=== PATIENT | female | born 1955 | race Caucasian/White ===

== ENCOUNTER 2016-06-27 18:40 | Emergency (ER) | payer MEDICARE, OTHER ==
--- NOTE | ~2016-06-27 | CR181 ---
[facility] A Service of [facility] & [facility] RADIOLOGY TEXT RESULTS PATIENT: PRINCESS EVERETT LOCATION: [facility] : 59 UNIT #: [id number] AGE: [address]: Sadaf Chavarria MD SEX: F ORDER DR: [id number] [facility] [address] [place], [place] [address] [id number] E MR#: [id number] Acc #: [id number] NAME: PRINCESS EVERETT : 1955 SEX: F STUDY DATE/TIME: 06/27/2016 20:15 UNIT: [facility] ROOM: STUDY DESCRIPTION: CR Lumbar Spine 2 or 3 Views Attending Physician: Sadaf Chavarria M.D. Ordering Physician: Sadaf Chavarria M.D. Primary Care Physician: Kelby Ahn M.D. MEDICAL IMAGING REPORT This report is preliminary unless electronic signature is present EXAM Lumbar spine, total of 3 views. HISTORY History supplied is fall with back pain, fell yesterday. FINDINGS 3 views are submitted. The exam shows postop changes of prior lumbar fusion from L4-S1 as well as fusion of both the right and left SI joints. There is mild anterolisthesis of L5 on S1. Pedicle screws, intervertebral disc hardware and hardware in the SI joints appears in appropriate position. Remainder of the lumbar spine is remarkable for marginal spur formation at L2-3. No acute fractures are suspected. There is atherosclerotic calcification in the aorta. CONCLUSION No acute finding suspected. Postop changes of prior pedicle screw and intervertebral disc fusion from L4-S1 as well as fusion of both SI joints. Not mentioned above, left renal artery stent. No acute findings. Dictated by... Ashish Barnhart M.D. THIS IS AN ELECTRONICALLY VERIFIED REPORT Ashish Barnhart M.D. at 06/28/2016 10:35 AM CHRIS/nandini TD: 06/28/2016 05:26 JOB #: [id number] MEDICAL IMAGING REPORT Page 1 of 1 COPY
--- NOTE | ~2016-06-27 | CR243 ---
[facility] A Service of [facility] & [facility] RADIOLOGY TEXT RESULTS PATIENT: PRINCESS EVERETT LOCATION: [facility] : 59 UNIT #: [id number] AGE: [address]: Sadaf Chavarria MD SEX: F ORDER DR: [id number] [facility] [address] [place], [place] [address] [id number] E MR#: [id number] Acc #: [id number] NAME: PRINCESS EVERETT : 1955 SEX: F STUDY DATE/TIME: 06/27/2016 20:15 UNIT: [facility] ROOM: STUDY DESCRIPTION: CR Thoracic Spine 3 Views Attending Physician: Sadaf Chavarria M.D. Ordering Physician: Sadaf Chavarria M.D. Primary Care Physician: Kelby Ahn M.D. MEDICAL IMAGING REPORT This report is preliminary unless electronic signature is present EXAM Thoracic spine 3 views HISTORY Back pain after fall yesterday. FINDINGS 3 views of the thoracic spine demonstrate the thoracic alignment is satisfactory. Minimal hypertrophic changes in the upper thoracic spine. No fracture or subluxation. Lower cervical fusion from C5 to C7. IMPRESSION 1. No acute findings. No fracture or subluxation. 2. Mild hypertrophic changes upper thoracic spine. Dictated by... Mendoza Oh M.D. THIS IS AN ELECTRONICALLY VERIFIED REPORT Mendoza Oh M.D. at 06/28/2016 7:58 PM DFL/df TD: 06/28/2016 05:50 JOB #: [id number] MEDICAL IMAGING REPORT Page 1 of 1 COPY
--- NOTE | ~2016-06-27 | CR206 ---
[facility] A Service of [facility] & [facility] RADIOLOGY TEXT RESULTS PATIENT: PRINCESS EVERETT LOCATION: [facility] : 59 UNIT #: [id number] AGE: [address]: Sadaf Chavarria MD SEX: F ORDER DR: [id number] [facility] [address] [place], [place] [address] [id number] E MR#: [id number] Acc #: [id number] NAME: PRINCESS EVERETT : 1955 SEX: F STUDY DATE/TIME: 06/27/2016 20:15 UNIT: [facility] ROOM: STUDY DESCRIPTION: CR Pelvis 1 or 2 Views Attending Physician: Sadaf Chavarria M.D. Ordering Physician: Sadaf Chavarria M.D. Primary Care Physician: Kelby Ahn M.D. MEDICAL IMAGING REPORT This report is preliminary unless electronic signature is present EXAM AP pelvis, 06/27/2016 HISTORY SUPPLIED Back pain, hip pain and weakness beginning yesterday after fall. FINDINGS A single view is obtained. The patient has had a lumbar fusion and fusion of the SI joints. The bony elements are intact. No fractures are identified. CONCLUSION Status post fusion of the SI joints and lumbar spine. No acute findings or fractures. Dictated by... Ashish Barnhart M.D. THIS IS AN ELECTRONICALLY VERIFIED REPORT Ashish Barnhart M.D. at 06/28/2016 10:35 AM CHRIS/hever TD: 06/28/2016 05:30 JOB #: [id number] MEDICAL IMAGING REPORT Page 1 of 1 COPY
[~2016-06-27 18:40] MED LIST: ABILIFY PO; ABILIFY10 MG PO; ABILIFY20 MG PO; ADVAIR 2501 DISK W/D; ADVAIR 2501 DISK W/D PO; ALBUTEROL 0.5ML INH; ALBUTEROL MININEB NEB; ALBUTEROL17 GM INH; ALBUTEROL20 ml INH; ALLEGRA PO; ALPRAZOLAM PO; AMBIEN PO; ASPIRIN EC81 M1 PO; ASPIRIN PO; ASPIRIN81 M1 PO; ASPIRIN81 M2 PO; AZITHROMYCIN250 MG PO; AZITHROMYCIN500 MG PO; BACLOFEN10 MG PO; BACTRIM DS TABL1 TAB PO; BENZONATATE PO; CARAFATE1 G PO; CARDURA PO; CIPRO PO; COLACE PO; COMBIVENT U/D3 M2 INH; CYMBALTA PO; CYMBALTA20 MG DOB; CYMBALTA20 MG PO; CYMBALTA30 MG PO; DEPAKOTE ER PO; DEPAKOTE PO; DIAZEPAM PO; DICLOFENAC PO; DOXEPIN HCL150 MG PO; DOXEPIN PO; ESGIC CAPSULE1 CAP PO; FIORICET1 TAB PO; FIORINAL CAPSUL1 CAP; FLEXERIL PO; GUAIFENESIN LA600 M1 PO; HCTZ; HCTZ PO; IBUPROFEN PO; K-DUR20 ME1 PO; KLONOPIN PO; LASIX20 MG PO; LIDOCAINE HCL30 ML TOP; LISINOPRIL10 MG; LISINOPRIL5 MG PO; LOPID600 MG PO; LORTAB 10/500 T1 TAB PO; LORTAB 7.5-5001 TAB PO; LOTREL 10-20 MG1 CAP PO; LOW DOSE ASPIRI81 M2 PO; LYRICA PO; MEDROL DOSEPAK4 MG PO; MEDROL PO; MEDROL4 MG/DOSE- PO; METHADONE; METOPROLOL SUCC25 MG PO; METOPROLOL TAR25 MG; METOPROLOL TAR25 MG PO; MOBIC PO; MUCINEX DM1 TAB.SR . PO; NASALIDE25 ML; NASALIDE25 ML PO; NEURONTIN; NICOTINE T1 PATCH .2; NITROGLYGERIN0.4 MG SL; NITROGYLCERIN SUBLINGUAL; NORCO 10-325 TA1 TAB PO; OMEPRAZOLE20 M2 PO; OXYCODONE HCL10 MG PO; OXYCODONE-APAP1 EAC5 PO; PANTOPRAZOLE SO40 MG PO; PATIENT'S PHARMACY; PATIENT'S PHARMACY PO; PERCOCET 10/3251 TAB PO; PERCOCET PO; PERCOCET10 PO; PERCOCET5/325 PO; PHENERGAN PO; PHENERGAN25 M1; PHENERGAN25 M1 PO; PHENERGAN25 MG PO; PREDNISONE PO; PREVACID PO; PROMETH-CODEIN 65 ML PO; PROTONIX; PROTONIX20 MG PO; PROTONIX40 MG/BLIS PO; PYRIDIUM PO; REGLAN; REGLAN PO; RELPAX40 MG PO; SEROQUEL; SEROQUEL PO; SIMVASTATIN10 MG PO; SYMBICORT INH; SYMBYAX 6-251 UDCAP; TEMAZEPAM PO; TEMAZEPAM30 MG PO; TESSALON PERLE100 M1 PO; TOPROL XL PO; ULTRAM PO; VICODIN 5/500 T1 TAB; VICODIN PO; XANAX XR2 MG PO; XANAX2 MG; XANAX2 MG PO; ZANAFLEX4 M1 PO; ZITHROMAX PO; ZITHROMAX1 G/PKT PO; ZOCOR; ZOCOR20 MG PO; ZOFRAN PO; [UNRECOGNIZED DRUG - OTHER] PO
[2016-07-26] MEDS ORDERED: ACID REDUCER150 MG PO (12:44)
[2016-07-26] MEDS ORDERED: CYMBALTA (12:44)
[2016-07-26] MEDS ORDERED: OXYCODONE HCL10 MG PO (12:45)
[2016-11-02] MEDS ORDERED: ABILIFY20 MG PO (14:26)
[2016-11-02] MEDS ORDERED: CYMBALTA PO (14:26)
[2016-11-02] MEDS ORDERED: BACLOFEN20 M1 (14:27)
[2016-11-02] MEDS ORDERED: XANAX2 MG (14:28)
[2016-11-02] MEDS ORDERED: TEMAZEPAM30 MG PO (14:28)
[2016-11-02] MEDS ORDERED: METOPROLOL TAR25 MG DOB (14:29)
[2016-11-02] MEDS ORDERED: LASIX20 MG PO (14:29)
[2016-11-02] MEDS ORDERED: ZANTAC150 M1 PO (14:29)
[2016-11-02] MEDS ORDERED: OXYCODONE HCL10 MG PO (14:30)
== END 2016-06-27 21:58 | disposition home or self-care (01) ==
LOC: CED 18:40
DX: S39.92XA Unspecified injury of lower back, initial encounter (principal); I25.2 Old myocardial infarction; J44.9 Chronic obstructive pulmonary disease, unspecified; F17.200 Nicotine dependence, unspecified, uncomplicated; Z88.0 Allergy status to penicillin; Z88.8 Allergy status to other drugs, medicaments and biological substances; Z79.899 Other long term (current) drug therapy; W01.0XXA Fall on same level from slipping, tripping and stumbling without subsequent striking against object, initial encounter; Y92.098 Other place in other non-institutional residence as the place of occurrence of the external cause
CPT/HCPCS: 72072; 72100; 72170; 99284

== ENCOUNTER 2016-08-11 16:15 | Emergency (ER) | payer MEDICARE, OTHER ==
--- NOTE | ~2016-08-11 | EKG ---
PATIENT: PRINCESS EVERETT UNIT #: [id number] Ventricular Rate: 84 BPM Atrial Rate: 84 BPM P-R Interval: 160 ms QRS Duration: 92 ms Q-T Interval: 410 ms QTC Calculation(Bezet): 484 ms P [place]: 64 degrees Calculated R [place]: 46 degrees Calculated T [place]: 40 degrees Diagnosis Line: Normal sinus rhythm Diagnosis Line: ST and T wave abnormality, consider anterior Diagnosis Line: ischemia Diagnosis Line: Prolonged QT Baseline wander Diagnosis Line: Abnormal ECG Diagnosis Line: When compared with ECG of 25-APR-2016 20:15, Diagnosis Line: No significant change was found Diagnosis Line: Confirmed by LUCIA SUAREZ MD ([id number]) on 08/12/2016 Diagnosis Line: 4:08:36 PM INTERPRETING MD: DANIELA SARABIA
--- NOTE | ~2016-08-11 | CR72 ---
[facility] A Service of [facility] & [facility] RADIOLOGY TEXT RESULTS PATIENT: PRINCESS EVREETT LOCATION: [facility] : 59 UNIT #: [id number] AGE: [address]: Cornelius Cook MD SEX: F ORDER DR: [id number] [facility] [address] [place], [place] [address] [id number] E MR#: [id number] Acc #: [id number] NAME: PRINCESS EVERETT : 1955 SEX: F STUDY DATE/TIME: 08/11/2016 16:20 UNIT: [facility] ROOM: STUDY DESCRIPTION: CR Chest Single View Portable Attending Physician: Cornelius Cook M.D. Ordering Physician: Cornelius Cook M.D. Primary Care Physician: Kelby Ahn M.D. MEDICAL IMAGING REPORT This report is preliminary unless electronic signature is present EXAM Portable chest. INDICATIONS Cough, congestion for 2 days. COMPARISON 04/25/2016 FINDINGS A portable view of the chest was obtained. The heart size and vascularity are normal. Lungs are clear. The bones are unremarkable except for postoperative changes in the cervical spine. IMPRESSION No active disease. Dictated by... Darnell Vines M.D. THIS IS AN ELECTRONICALLY VERIFIED REPORT Darnell Vines M.D. at 08/11/2016 9:54 PM TAMELA/jolly TD: 08/11/2016 20:37 JOB #: [id number] MEDICAL IMAGING REPORT Page 1 of 1 COPY
[~2016-08-11 16:15] MED LIST changes: +ACID REDUCER150 MG PO; +CYMBALTA
[2016-08-11 16:34] LABS: BASOPHIL# 0.1 X10e3 (0-0.3); BASOPHIL% 1.1 % (0-2.5); EOSINOPHIL# 0.4 X10e3 (0-0.7); EOSINOPHIL% 4.8 % (0.0-7.0); HEMATOCRIT 36.2 % (35.0-45.0); HEMOGLOBIN 11.7 gm/dL (12.0-16.0); LYMPHOCYTE# 1.8 X10e3 (1.0-3.5); MEAN CELL VOLUME 81.5 FL (83-96); MEAN CORPUSCULAR HEMOGLOBIN 26.4 PG (28-34); MEAN CORPUSCULAR HGB CONC 32.3 g/dL (30-36); MEAN PLATELET VOLUME 7.8 FL (6.5-11.5); MONOCYTE# 0.6 X10e3 (0-1.0); MONOCYTE% 7.7 % (3.0-12.0); NEUTROPHIL% 63.4 % (40-75); PLATELET COUNT 323 X10e3 (140-420); RED BLOOD COUNT 4.43 X10e (3.90-5.30); RED CELL DISTRIBUTION WIDTH 16.6 % (11.0-15.5); WHITE BLOOD COUNT 7.9 X10e3 (4.0-10.5)
[2016-08-11 16:34] LABS: POC - CKMB <1.0 ng/mL (0.0-7.9); POC - TROPONIN <0.05 ng/mL (<=0.05)
[2016-08-11 16:40] LABS: DIFF IND NO
[2016-08-11 16:49] LABS: PARTIAL THROMBOPLASTIN TIME 26.6 SECONDS (23.5-31.3); PROTHROMBIN TIME (PATIENT) 10.4 SECONDS (9.6-11.5)
[2016-08-11 17:02] LABS: ALBUMIN SERUM 3.4 g/dL (3.5-5.0); ALKALINE PHOSPHATASE 99 U/L (32-92); ALT (SGPT) 21 U/L (10-40); AST (SGOT) 15 U/L (10-42); BILIRUBIN, DIRECT 0.2 mg/dL (0.0-0.2); BILIRUBIN,INDIRECT 0.6 mg/dL (0.0-0.9); BILIRUBIN,TOTAL 0.8 mg/dL (0.2-2.0); BLOOD UREA NITROGEN 6 mg/dL (9-23); CARBON DIOXIDE 30 mmol/L (22-31); CHLORIDE 101 mmol/L (100-111); CREATININE SERUM 0.8 mg/dL (0.6-1.4); GLOM FILT RATE Estimated 80.8 mL/min (>60); GLUCOSE FASTING 89 mg/dL (70-110); PROTEIN TOTAL SERUM 6.8 g/dL (6.0-8.3); SODIUM 141 mmol/L (135-145)
[2016-08-11 17:03] LABS: URINE SOURCE CLEAN CATCH
[2016-08-11 17:05] LABS: ALCOHOL BLOOD <5 mg/dL (0)
[2016-08-11 17:08] LABS: URINE APPEARANCE CLOUDY; URINE BILIRUBIN NEG (NEG); URINE BLOOD TRACE (NEG); URINE COLOR DK YELLOW; URINE GLUCOSE NEG (NEG); URINE KETONE TRACE (NEG); URINE LEUKOCYTE ESTERASE 3+ (NEG); URINE NITRATE NEG (NEG); URINE PROTEIN NEG (NEG); URINE SPECIFIC GRAVITY 1.017 (1.003-1.035)
[2016-08-11 17:11] LABS: CULTURE INDICATED? YES; URINE BACTERIA AUWI NEG (NEGATIVE); URINE SQUAMOUS EPITHELIAL CELL NONE SEEN /[HPF]; UWBCS1 AUWI 200-300 (0-5)
[2016-08-11 17:18] LABS: AMPHETAMINE NEG (NEG); BARBITURATES NEG (NEG); BENZODIAZEPINES POS (NEG); COCAINE NEG (NEG); MARIJUANA NEG (NEG); OPIATES POS (NEG); TRICYCLIC ANTIDEPRESSANTS NEG (NEG); U METHADONE NEG (NEG)
[2016-08-11 18:31] LABS: POC - CKMB <1.0 ng/mL (0.0-7.9); POC - TROPONIN <0.05 ng/mL (<=0.05)
[2016-11-02] MEDS ORDERED: CYMBALTA PO (14:26)
[2016-11-02] MEDS ORDERED: ABILIFY20 MG PO (14:26)
[2016-11-02] MEDS ORDERED: BACLOFEN20 M1 (14:27)
[2016-11-02] MEDS ORDERED: TEMAZEPAM30 MG PO (14:28)
[2016-11-02] MEDS ORDERED: XANAX2 MG (14:28)
[2016-11-02] MEDS ORDERED: ZANTAC150 M1 PO (14:29)
[2016-11-02] MEDS ORDERED: METOPROLOL TAR25 MG DOB (14:29)
[2016-11-02] MEDS ORDERED: LASIX20 MG PO (14:29)
[2016-11-02] MEDS ORDERED: OXYCODONE HCL10 MG PO (14:30)
== END 2016-08-11 18:40 | disposition home or self-care (01) ==
LOC: CED 16:15
PROVIDERS: Emergency Medicine
DX: N39.0 Urinary tract infection, site not specified (principal); J44.9 Chronic obstructive pulmonary disease, unspecified; K21.9 Gastro-esophageal reflux disease without esophagitis; I50.9 Heart failure, unspecified; Z85.41 Personal history of malignant neoplasm of cervix uteri; I42.9 Cardiomyopathy, unspecified; F17.200 Nicotine dependence, unspecified, uncomplicated; Z88.8 Allergy status to other drugs, medicaments and biological substances; Z88.0 Allergy status to penicillin; Z79.899 Other long term (current) drug therapy
CPT/HCPCS: 36415; 51701; 71010; 80048; 80076; 80307; 81003; 82553; 84484; 85025; 85610; 85730; 87086; 93005; 96374; 99284; G0480; J2405

== ENCOUNTER 2016-09-14 10:29 | Emergency (ER) | payer MEDICARE, OTHER ==
--- NOTE | ~2016-09-14 | CR181 ---
[facility] A Service of [facility] RADIOLOGY TEXT RESULTS PATIENT: PRINCESS EVERETT LOCATION: [facility] : 59 UNIT #: [id number] AGE: [address]: CONNIE BAUTISTA SEX: F ORDER DR: [id number] [place] [id number] [facility] [place], [place] [address] [id number] E MR#: [id number] Acc #: [id number] NAME: PRINCESS EVERETT : 1955 SEX: F STUDY DATE/TIME: 09/14/2016 11:06 UNIT: [facility] ROOM: STUDY DESCRIPTION: CR Lumbar Spine 2 or 3 Views Attending Physician: Connie Bautista Aprn Ordering Physician: Connie Bautista Aprn Primary Care Physician: Kelby Ahn M.D. MEDICAL IMAGING REPORT This report is preliminary unless electronic signature is present EXAM Lumbar spine 09/14/2016 1106 hours HISTORY Patient fell last night. History of chronic back pain with worsening pain due to fall. COMPARISON 06/27/2016. FINDINGS AP and lateral views and a cone lateral view of the lumbosacral junction were performed. There are 5 non-rib bearing lumbar type vertebrae. Patient has pedicle screws with vertical stabilization rods at L3 and L4 with disc spacers at L3-4, L4-5 and L5-S1. Previous hardware at L5 and S1 has been removed. Patient has hardware fusing across both sacroiliac joints and bone graft material seen in the lower lumbar spine. There is no acute fracture seen. There are atherosclerotic calcifications with a left renal artery stent unchanged. IMPRESSION 1. No acute fracture or subluxation. 2. There are pedicle screws and posterior vertical stabilization rods at L3 and L4 with removal of hardware from L5 and S1 since the comparison study of 06/27/2016. There is bone graft material posteriorly in the lower lumbar levels. 3. Postop change of fusion across the sacroiliac joints unchanged. Dictated by... Lynnette Pedraza M.D. THIS IS AN ELECTRONICALLY VERIFIED REPORT [facility] A Service of [facility] RADIOLOGY TEXT RESULTS PATIENT: PRINCESS EVERETT LOCATION: [facility] : 59 UNIT #: [id number] AGE: [address]: CONNIE BAUTISTA SEX: F ORDER DR: Lynnette Pedraza M.D. at 09/14/2016 2:09 PM JESSICA/jens TD: 09/14/2016 12:41 JOB #: [id number] MEDICAL IMAGING REPORT Page 1 of 1 COPY
[2016-11-02] MEDS ORDERED: CYMBALTA PO (14:26)
[2016-11-02] MEDS ORDERED: ABILIFY20 MG PO (14:26)
[2016-11-02] MEDS ORDERED: BACLOFEN20 M1 (14:27)
[2016-11-02] MEDS ORDERED: TEMAZEPAM30 MG PO (14:28)
[2016-11-02] MEDS ORDERED: XANAX2 MG (14:28)
[2016-11-02] MEDS ORDERED: METOPROLOL TAR25 MG DOB (14:29)
[2016-11-02] MEDS ORDERED: LASIX20 MG PO (14:29)
[2016-11-02] MEDS ORDERED: ZANTAC150 M1 PO (14:29)
[2016-11-02] MEDS ORDERED: OXYCODONE HCL10 MG PO (14:30)
== END 2016-09-14 12:25 | disposition home or self-care (01) ==
LOC: CED 10:29 → CFTX 10:29
DX: S39.012A Strain of muscle, fascia and tendon of lower back, initial encounter (principal); S30.0XXA Contusion of lower back and pelvis, initial encounter; J44.9 Chronic obstructive pulmonary disease, unspecified; Z90.710 Acquired absence of both cervix and uterus; Z90.49 Acquired absence of other specified parts of digestive tract; Z98.890 Other specified postprocedural states; F17.200 Nicotine dependence, unspecified, uncomplicated; W19.XXXA Unspecified fall, initial encounter; Y92.9 Unspecified place or not applicable
CPT/HCPCS: 72100; 99283

== ENCOUNTER 2016-10-01 10:36 | Emergency (ER) | payer MEDICARE, OTHER ==
--- NOTE | ~2016-10-01 | CT2 ---
[facility] A Service of [facility] & [facility] RADIOLOGY TEXT RESULTS PATIENT: PRINCESS EVERETT LOCATION: [facility] : 59 UNIT #: [id number] AGE: [address]: Natanael Hi MD SEX: F ORDER DR: [id number] [facility] [address] [place], [place] [address] [id number] E MR#: [id number] Acc #: [id number] NAME: PRINCESS EVERETT : 1955 SEX: F STUDY DATE/TIME: 10/01/2016 13:01 UNIT: [facility] ROOM: STUDY DESCRIPTION: CT Abd and Pelv W Cont Attending Physician: Natanael Hi M.D. Ordering Physician: Natanael Hi M.D. Primary Care Physician: Kelby Ahn M.D. MEDICAL IMAGING REPORT This report is preliminary unless electronic signature is present EXAM CT of the abdomen and pelvis with contrast. INDICATIONS Nausea, vomiting for [address] scan of the abdomen and pelvis was performed following the administration of oral and IV contrast. Coronal and sagittal reformatted images were obtained. This CT exam was performed with one or more of the following radiation dose reduction techniques: automatic exposure control, adjustment of mA and/or kV according to patient size, and iterative reconstruction. Comparison with 09/11/2015. FINDINGS There are patchy airspace opacities within the base of the right lower lobe which may represent small areas of pneumonia. Correlate clinically. The liver is unremarkable. Cholecystectomy. The spleen is unremarkable. Stable atrophy of the left kidney with respect to the right. The adrenal glands are unremarkable. Pancreas is unremarkable. Pelvis. The colon is unremarkable. The appendix is normal. There is no free fluid. Hysterectomy. Bone windows demonstrate postoperative changes of the pelvis in the lumbar spine. IMPRESSION 1. There are some patchy airspace opacities in the base of the right lower lobe which are nonspecific but may be infectious or inflammatory. Correlate clinically. A followup chest CT in 3 months would be helpful to document clearing. 2. Stable atrophy of the left kidney with respect to the right kidney. There is a stent within the left renal artery. [facility] A Service of [facility] & [facility] RADIOLOGY TEXT RESULTS PATIENT: PRINCESS EVERETT LOCATION: [facility] : 59 UNIT #: [id number] AGE: [address]: Natanael Hi MD SEX: F ORDER DR: 3. Cholecystectomy and hysterectomy. Dictated by... Freddy Maradiaga M.D. THIS IS AN ELECTRONICALLY VERIFIED REPORT Freddy Maradiaga M.D. at 10/02/2016 7:32 AM ARS/padma TD: 10/01/2016 20:05 JOB #: [id number] MEDICAL IMAGING REPORT Page 1 of 1 COPY
[2016-10-01 11:19] LABS: BASOPHIL% 0.3 % (0-2.5); EOSINOPHIL# 0.3 X10e3 (0-0.7); HEMATOCRIT 39.3 % (35.0-45.0); LYMPHOCYTE# 2.8 X10e3 (1.0-3.5); LYMPHOCYTE% 27.3 % (17.0-45.0); MEAN CELL VOLUME 81.3 FL (83-96); MEAN CORPUSCULAR HEMOGLOBIN 26.9 PG (28-34); MEAN CORPUSCULAR HGB CONC 33.1 g/dL (30-36); MEAN PLATELET VOLUME 7.5 FL (6.5-11.5); MONOCYTE# 0.6 X10e3 (0-1.0); MONOCYTE% 5.5 % (3.0-12.0); NEUTROPHIL# 6.6 X10e3 (1.5-7.1); NEUTROPHIL% 63.9 % (40-75); PLATELET COUNT 315 X10e3 (140-420); RED BLOOD COUNT 4.84 X10e (3.90-5.30); RED CELL DISTRIBUTION WIDTH 15.9 % (11.0-15.5); WHITE BLOOD COUNT 10.3 X10e3 (4.0-10.5)
[2016-10-01 11:21] LABS: DIFF IND NO
[2016-10-01 11:53] LABS: ALBUMIN SERUM 3.6 g/dL (3.5-5.0); BILIRUBIN, DIRECT 0.1 mg/dL (0.0-0.2); BILIRUBIN,INDIRECT 0.2 mg/dL (0.0-0.9); BILIRUBIN,TOTAL 0.3 mg/dL (0.2-2.0); BUN/CREATININE RATIO 6.25; CALCIUM SERUM 9.2 mg/dL (8.4-10.2); CREATININE SERUM 0.8 mg/dL (0.6-1.4); GLOM FILT RATE Estimated 80.8 mL/min (>60); POTASSIUM 3.1 mmol/L (3.5-5.1); PROTEIN TOTAL SERUM 6.9 g/dL (6.0-8.3)
[2016-10-01 12:48] LABS: URINE SOURCE CLEAN CATCH
[2016-10-01 12:56] LABS: URINE APPEARANCE CLEAR; URINE BILIRUBIN NEG (NEG); URINE BLOOD NEG (NEG); URINE COLOR YELLOW; URINE GLUCOSE NEG (NEG); URINE KETONE NEG (NEG); URINE LEUKOCYTE ESTERASE 1+ (NEG); URINE NITRATE POS (NEG); URINE PH 6.5 (5-8); URINE PROTEIN NEG (NEG); URINE SPECIFIC GRAVITY 1.007 (1.003-1.035); URINE UROBILINOGEN 0.2 MG/DL (NEG)
[2016-10-01 13:00] LABS: CULTURE INDICATED? YES; URBCS1 AUWI 0-2 /[HPF] (0-2); URINE BACTERIA AUWI 1+ (NEGATIVE); URINE SQUAMOUS EPITHELIAL CELL FEW /[HPF]
[2016-10-01 13:30] LABS: URINE MUCUS PRESENT; URINE TRANSITIONAL EPI CELLS FEW /[HPF]
[2016-11-02] MEDS ORDERED: CYMBALTA PO (14:26)
[2016-11-02] MEDS ORDERED: ABILIFY20 MG PO (14:26)
[2016-11-02] MEDS ORDERED: BACLOFEN20 M1 (14:27)
[2016-11-02] MEDS ORDERED: XANAX2 MG (14:28)
[2016-11-02] MEDS ORDERED: TEMAZEPAM30 MG PO (14:28)
[2016-11-02] MEDS ORDERED: METOPROLOL TAR25 MG DOB (14:29)
[2016-11-02] MEDS ORDERED: ZANTAC150 M1 PO (14:29)
[2016-11-02] MEDS ORDERED: LASIX20 MG PO (14:29)
[2016-11-02] MEDS ORDERED: OXYCODONE HCL10 MG PO (14:30)
== END 2016-10-01 14:29 | disposition home or self-care (01) ==
LOC: CED 10:36
PROVIDERS: Emergency Medicine
DX: R10.9 Unspecified abdominal pain (principal); R11.10 Vomiting, unspecified; R19.7 Diarrhea, unspecified; J44.9 Chronic obstructive pulmonary disease, unspecified; F17.200 Nicotine dependence, unspecified, uncomplicated; E87.6 Hypokalemia; Z88.0 Allergy status to penicillin; Z88.8 Allergy status to other drugs, medicaments and biological substances; Z88.1 Allergy status to other antibiotic agents
CPT/HCPCS: 36415; 74177; 80048; 80076; 81003; 82150; 83690; 85025; 87086; 87088; 87186; 96361; 96374; 99284; J2550; Q9967

== ENCOUNTER → 2016-11-02 | Day surgery (SDC) | payer MEDICARE, OTHER ==
[~2016-11-02] MED LIST changes: +BACLOFEN20 M1; +METOPROLOL TAR25 MG DOB; +ZANTAC150 M1 PO
--- NOTE | ~2016-11-02 | OR ---
Unit #: [id number] #: [id number] Patient: PRINCESS EVERETT [id number] [address] [address] [id number] O MR#: [id number] NAME: PRINCESS EVERETT ROOM: Date of Procedure: 11/02/2016 Admission Date: 11/02/2016 Surgeon: Sarath Gar M.D. : 1955 Attending Physician: Sarath Gar M.D. Primary Care Physician: Kelby Ahn M.D. OPERATIVE REPORT PROCEDURES PERFORMED Esophagogastroduodenoscopy with biopsies. INDICATIONS FOR PROCEDURE The patient with significant dysphagia, history of peptic ulcer disease, with dilation. MEDICATIONS Monitored anesthesia. POSTOPERATIVE FINDINGS 1. Esophagitis involving mid and distal esophagus in a patchy manner. Biopsies taken looking for marizol . 2. Mild gastritis. Biopsies taken looking for H pylori. 3. No ulcer seen. Previously documented ulcers have healed. 4. Normal duodenum and distal duodenum. PLAN 1. Continue PPI therapy. 2. Follow up on pathology report. DESCRIPTION OF PROCEDURE The patient was explained of the procedure, risks, and benefits along with risks and benefits of anesthesia. She was brought to the endoscopy room. Propofol anesthesia was given. Bite block was placed. The scope was passed down the mouth into the esophagus, stomach, duodenum, and distal duodenum. Findings have been described. Biopsies taken. Gently, I pulled the scope out of the patient's mouth. She tolerated it well. Dictated by... Denisse Mckeon/ellyn TD: 11/02/2016 16:58 JOB #: [id number] CC: Kelby Ahn M.D. Unit #: [id number] #: [id number] Patient: PRINCESS EVERETT OPERATIVE REPORT Page 1 of 1 X Sarath Gar MD X PROCEDURE OPERATIVE NOTE
== END | disposition home or self-care (01) ==
LOC: COPS 08-03 08:00
DX: K29.50 Unspecified chronic gastritis without bleeding (principal); K21.9 Gastro-esophageal reflux disease without esophagitis; J43.9 Emphysema, unspecified; F32.9 Major depressive disorder, single episode, unspecified; F17.210 Nicotine dependence, cigarettes, uncomplicated; I11.0 Hypertensive heart disease with heart failure; I50.9 Heart failure, unspecified; Z87.11 Personal history of peptic ulcer disease; I42.9 Cardiomyopathy, unspecified; I25.2 Old myocardial infarction; Z88.6 Allergy status to analgesic agent; Z88.1 Allergy status to other antibiotic agents; Z88.0 Allergy status to penicillin; Z88.5 Allergy status to narcotic agent; Z79.899 Other long term (current) drug therapy; Z90.710 Acquired absence of both cervix and uterus; Z90.49 Acquired absence of other specified parts of digestive tract; Z98.1 Arthrodesis status; Z98.890 Other specified postprocedural states; Z98.51 Tubal ligation status; Z95.818 Presence of other cardiac implants and grafts
CPT/HCPCS: 88305; 88312